=== PATIENT | male | born 1935 | race Caucasian/White ===

== ENCOUNTER 2024-04-02 08:58 | Outpatient (OUT) | payer MEDICARE, SELFPAY ==
--- NOTE | 2024-04-02 09:00 | CA_ITS ---
Patient Name: ANNE DOOLEY MR#: [id number] : 1935 Exam Date: 04/02/2024 Ordering Doctor: JOEL GUERRA M.D. ECHOCARDIOGRAM REPORT PROCEDURE: CA ECHO DOPPLER COMPLETE INDICATIONS: Atrial fibrillation, hypertension COMPARISON: None. DESCRIPTION: COMPLETE ECHOCARDIOGRAM Real-time transthoracic echocardiography with 2D, M-mode, spectral and color flow Doppler performed. QUALITY: Technical quality was good. LEFT VENTRICLE: Normal chamber size. Mild left ventricular hypertrophy. LV EF: Global left ventricular systolic function is hyperdynamic; visually estimated ejection fraction is 65 to 70%. No obvious wall motion abnormalities. DIASTOLIC: Not adequately assessed due to heart rhythm. ATRIAL SEPTUM: Visually appears intact. LEFT ATRIUM: Severe dilatation. RIGHT ATRIUM: Severe dilatation. RIGHT VENTRICLE: Normal chamber size. Normal right ventricular systolic function. TRICUSPID VALVE: Normal mobility and thickness. Mild regurgitation. No evidence of pulmonary hypertension. RVSP 33 mmHg MITRAL VALVE: Mildly thickened with normal mobility. No evidence of mitral valve stenosis. Mild mitral annular calcification. Trivial mitral regurgitation. AORTIC VALVE: Normal trileaflet appearance. Mildly calcified aortic valve. Mildly diminished mobility. No evidence of aortic valve stenosis. DVI 0.5, MERNA 2.9 cm2. No aortic regurgitation. AORTIC ROOT: Normal diameter and appearance. Ascending aorta is normal in size. PULMONIC VALVE: Normal thickness and mobility. No stenosis. Trivial regurgitation. PERICARDIUM: No evidence of pericardial effusion. IVC: IVC is normal in size, does not fully collapse. CONCLUSION: 1. Global left ventricular systolic function is hyperdynamic; visually estimated ejection fraction is 65 to 70% 2. Normal right ventricular size and systolic function 3. Mildly increased left ventricular wall thickness 4. Biatrial enlargement 5. Mild tricuspid regurgitation Adult Echocardiography Procedure Report Left Ventricle LVEDD (3.7 - 5.6 cm): 4.63 cm LVESD (2.2 - 4.0 cm): 3.41 cm LVIVS thickness (0.6 - 1.2 cm): 1.07 cm LVPW thickness (0.5 - 1.0 cm): 1.23 cm LVOT Max Gradient: 1.76 mm[Hg], 1.52 mm[Hg] LVOT Area (cm2): 0.64 m/s Peak Velocity (LVOT): 0.66 m/s, 0.62 m/s Mean Velocity (LVOT): 0.43 m/s LVOT Diameter 2.50 cm Left Atrium LA Volume Index (2D A2C): 66.18 ml/m2 Left Atrium Systolic Dimension: 4.30 cm Mitral Valve Mitral Valve E-Wave Peak Velocity: 0.75 m/s Right Ventricle Aorta AO Root Diam: 3.71 cm Ascending Ao Diam: 3.01 cm Aortic Valve AoV Area (Peak Zack): 2.58 cm2, 2.67 cm2 AoV Area (VTI): 2.86 cm2, 2.95 cm2 Peak Velocity(Antegrade Flow): 1.22 m/s Peak Gradient(Antegrade Flow): 5.98 mm[Hg] Mean Velocity(Antegrade Flow): 0.83 m/s Mean Gradient(Antegrade Flow): 3.23 mm[Hg] Velocity Time Integral: 23.76 cm Tricuspid Valve Peak Velocity (Regurgitant Flow): 2.49 m/s, 2.47 m/s, 2.52 m/s Pulmonic Valve Mean Gradient: 1.80 mm[Hg] Mean Velocity: 0.64 m/s Peak Velocity: 0.87 m/s, 0.83 m/s Peak Gradient: 2.75 mm[Hg], 3.04 mm[Hg] Right Atrium Right Atrium Systolic Pressure: 64.19 ml, 64.19 ml Dictated by: Kong Tse M.D. on 04/02/2024 at 16:55 Approved by: Kong Tse M.D. on 04/02/2024 at 16:58
== END 2024-04-02 08:59 | disposition home or self-care (01) ==
LOC: CARD 08:58
PROVIDERS: PCP Nurse Practitioner Family; Visit Provider Internal Medicine Cardiovascular Disease
DX: R94.31 Abnormal electrocardiogram [ECG] [EKG] (principal); I48.0 Paroxysmal atrial fibrillation
CPT/HCPCS: 93306